=== PATIENT | female | born 1940 | race Caucasian/White ===

== ENCOUNTER 2016-12-21 14:03 | Day surgery (SDC) | payer MEDICARE, OTHER ==
[~2016-12-21 14:03] MED LIST: ACETAMINOPHEN500 M4 PO; ALBUTEROL17 GM INH; ALEVE220 M2 PO; ALEVE220 M4 PO; ASPIRIN325 MG PO; BABY ASPIRIN81 MG PO; BACTROBAN15 GM TP; BISAC-EVAC10 MG PR; CALCITRIOL0.25 MCG; CALCITRIOL0.5 MC1 PO; COLACE100 M1 PO; COMPAZINE10 M; COUMADIN4 MG; COUMADIN5 M2 PO; COUMADIN7.5 M1 PO; COZAAR100 MG; COZAAR100 MG PO; COZAAR50 MG; CPAP; CYCLOBENZAPRINE5 M1 PO; DIAZEPAM5 M2 PO; DIGOXIN125 MCG; DILTIAZEM XR240 M; EPOGEN SQ; GLIPIZIDE5 MG PO; HUMALOG100 U/ML SQ; HUMALOG100 UNIT/2 SC; HUMULIN N100 U/ML SC; HUMULIN N100 U/ML SQ; HYDRALAZINE HCL25 MG; HYDRALAZINE HCL25 MG PO; IBUPROFEN200 M2 PO; KEFLEX500 MG PO; LANTUS100 U/ML SC; LANTUS100 UNITS/ SC; LASIX40 MG; LEVOTHROID125 MCG PO; LEVOTHYROXINE200 MC4 PO; LEVOTHYROXINE25 MC3 PO; LIDODERM1 EACH; LOSARTAN POTASS25 M1 PO; LOVAZA1 GM PO; MELATONIN5 M1 PO; MELATONIN5 M2 PO; MELATONIN5 M7 PO; MIDODRINE HCL5 M1 PO; MILK OF MAGNESIA PO; MIRALAX17 G2 PO; MIRALAX255 GM PO; MULTIVITAMINS1 EAC7 PO; NEURONTIN300 MG PO; NITROGLYCERIN0.4 M2 SL; NITROQUICK0.4 MG SL; NORCO 5-325 TA1 EACH PO; NORCO 5/325 TAB1 TAB; NYSTATIN30 GM TP; OMACOR1 G; OMACOR1 G PO; OMEGA 3 1,0001 EAC1 PO; OXYCODONE PO; PACERONE100 M1 PO; PHOSLO667 M; PHOSLO667 MG PO; RENVELA800 M1 PO; REQUIP1 M1 PO; REQUIP2 M1 PO; REQUIP3 M1 PO; REQUIP4 M1 PO; ROCALTROL0.25 MCG; SENNA PLUS TAB1 EAC1 PO; SENSIPAR30 M1 PO; SENSIPAR30 MG PO; TEMAZEPAM30 M1 PO; TRAMADOL HCL50 M2 PO; TRAZODONE HCL50 M1 PO; TRIPHROCAPS SOFT1 MG PO; TUMS200 MG PO; TYLENOL 8 HOUR650 MG PO; TYLENOL PM EX-1 EAC4 PO; TYLENOL PM EX-1 EACH PO; TYLENOL TA500 MG/TA1; VITAMIN D50000 UNI2 PO; VITAMIN D50000 UNIT; VITAMIN D50000 UNIT PO; VITAMIN E400 UNI1 PO; WARFARIN SODIUM5 M2 PO; ZEMPLAR1 MCG; ZOCOR20 M1 PO; ZOCOR20 MG PO; ZOFRAN4 M1; ZOFRAN4 M2 PO; ZOLOFT25 MG PO; ZOLOFT50 M1 PO; ZOLOFT50 MG
[2016-12-21 15:51] LABS: INR 1.6 INR (0.9-1.1)
== END 2016-12-21 20:05 ==
LOC: RADSP 14:03 → SHSB 14:10
PROVIDERS: Internal Medicine Nephrology
PROC: 057F3ZZ Dilation of Left Cephalic Vein, Percutaneous Approach (ICD-10-PCS; principal; 2016-12-21)
DX: T82.858A Stenosis of other vascular prosthetic devices, implants and grafts, initial encounter (principal); E11.22 Type 2 diabetes mellitus with diabetic chronic kidney disease; N18.6 End stage renal disease; E03.9 Hypothyroidism, unspecified; F32.9 Major depressive disorder, single episode, unspecified; J45.909 Unspecified asthma, uncomplicated; I25.10 Atherosclerotic heart disease of native coronary artery without angina pectoris; Z90.49 Acquired absence of other specified parts of digestive tract; Z98.1 Arthrodesis status; Z95.1 Presence of aortocoronary bypass graft; Z98.890 Other specified postprocedural states
CPT/HCPCS: C1725; C1769; G0257; J7030; Q9967